=== PATIENT | male | born 1975 | race African-American/Black ===

== ENCOUNTER 2022-01-13 11:38 | Day surgery (SDC) | payer OTHER, SELFPAY ==
[2022-01-13] VITALS (13 sets, daily range): BP systolic 112–150; BP diastolic 56–96; PULSE 80–99; RESP 16–19; TEMP 36.6–37.5; O2SAT 95–100; BMI 30.7
--- NOTE | ~2022-01-13 | XR_ITS ---
EXAMINATION: XR FOREARM, LEFT CLINICAL INFORMATION: Foreign body COMPARISON: Same day radiographs TECHNIQUE: Additional AP view of the left forearm.. XR/XR forearm LT 2V FINDINGS: IMPRESSION: Redemonstration of the metallic staple which appears to traverse the mid shaft of the ulna with no fracture evident.
--- NOTE | ~2022-01-13 | FL_ITS ---
EXAMINATION: XR FLUOROSCOPY WITH IMAGES CLINICAL INFORMATION: Removal metallic staple mid left forearm. COMPARISON: Radiographs left forearm 01/13/2022 TECHNIQUE: Fluoroscopy performed by Sade. Fluoroscopy time: 9 seconds DAP: 5781.7 uGycm2 Images: 3 FINDINGS: Initial image demonstrates the U-shaped metallic staple residing adjacent to the midshaft ulnar. The other 2 images show no remaining metallic foreign body. No visible fracture or destructive process or periostitis. FL/FL guidance in OR IMPRESSION: Fluoroscopy for orthopedic procedure.
--- NOTE | ~2022-01-13 | XR_ITS ---
EXAMINATION: XR FOREARM, LEFT CLINICAL INFORMATION: Staple in forearm COMPARISON: None TECHNIQUE: AP and lateral views of the left forearm were obtained. FINDINGS: Bones have normal alignment at the elbow and wrist. No fracture or subluxation. A metallic staple projects over the proximal ulnar diaphysis on both radiographic views. Therefore, the staple is likely embedded within bone. The tips of the staple are within the anterolateral soft tissues whereas the stable head is in the posterior subcutaneous tissues. There are no other foreign bodies in the examined extremity. XR/XR forearm LT 2V IMPRESSION: The stable appears to penetrate through the ulnar diaphysis. However, no evidence of ulnar fracture.
[2022-01-13] MEDS: Diphth,Pertus(ACell),Tet Adult 0.5 ML SYRINGE IM (12:57)
[2022-01-13] MEDS: Morphine Sulfate 4 MG/ML CARTRIDGE IVPUSH ×2 (13:07→15:00)
[2022-01-13] MEDS: ondansetron HCL 4 MG/2 ML VIAL IVPUSH (13:07)
--- NOTE | 2022-01-13 13:22 | ED.WOUNDLAC ---
HPI - Wound/Laceration General Chief Complaint: Wound/Laceration Stated Complaint: staple shot into arm at work Time Seen by Provider: 01/13/22 12:23 Source: patient and family Mode of arrival: ambulatory Limitations: no limitations History of Present Illness HPI narrative: 46-year-old male healthy who is [id number] here with complaints of left forearm pain. Patient tells me that he was working and the staple gun accidentally went off into his left forearm. Since then he reports pain, swelling of the forearm with pain that radiates into the left hand. NO numbness, tingling. Tetanus status unknown. Related Data Allergies Allergy/AdvReac Type Severity Reaction Status Date / Time No Known Allergies Allergy Verified 01/13/22 11:45 Review of Systems Review of Systems: Yes all other systems are reviewed and are negative Constitutional: Constitutional: Reports no additional constitutional complaints, Denies body ache(s), Denies chills, Denies fever(s), Denies headache(s) and Denies weakness Eyes: Eyes: Reports no additional eye complaints and Denies change in vision ENT: Reports system reviewed and no additional complaints, except as documented, Denies dizziness, Denies headache(s), Denies nasal congestion, Denies nasal discharge and Denies neck pain Cardiovascular: Cardiovascular: Reports no additional cardiovascular complaints, Denies chest pain, Denies leg edema and Denies dyspnea Respiratory: Respiratory: Reports no additional respiratory complaints, Denies cough and Denies dyspnea Gastrointestinal: Gastrointestinal: Reports no additional gastrointestinal complaints, Denies abdominal pain, Denies diarrhea, Denies nausea and Denies vomiting Genitourinary: Genitourinary: Denies urinary incontinence Musculoskeletal: Musculoskeletal: Reports no additional musculoskeletal complaints, Denies back pain, Reports arthralgias, Denies joint swelling, Reports limited range of motion, Denies neck pain, Denies numbness and Denies tingling Integumentary/Breasts: Skin/Breast: Reports system reviewed and no additional complaints, except as docu, Reports swelling and Denies rash Neurologic: Reports system reviewed and no additional complaints, except as documented, Denies Abnormal speech present, Denies dizziness, Denies headache(s), Denies numbness, Denies tingling and Denies weakness [facility] Past Medical History Attestation statement: The following information was validated with the patient. Source: old records reviewed and nursing notes reviewed Social History Social History Advance Directives: No Advance Directives Information Provided: No Physical Exam Vital Signs: Vital Signs: Last Vital Signs Temp 99.5 F 01/13/22 16:05 Pulse 87 01/13/22 16:05 Resp 18 01/13/22 16:05 BP 140/93 H 01/13/22 16:05 Pulse Ox 97 01/13/22 16:05 BMI result Body Mass Index 30.7 Const: General: cooperative, healthy appearing, comfortable and no acute distress Orientation/consciousness: patient oriented x3 Limitations: no limitations HEENT: Head: Yes normal to inspection Ears: hearing grossly normal bilaterally General nose exam: Normal external nose present Face and sinus: Yes normal facial exam Mouth: Normal oral and palatal mucosa present Throat: Yes posterior oropharynx normal Eyes: General: appearance normal, both eyes and all related structures Pupils: Equal, round and reactive pupils present Neck: Neck: Yes normal visual inspection Chest: Chest palpation & inspection: normal inspection of the chest Resp: Effort & Inspection: normal respiratory effort Auscultation: clear to auscultation bilaterally Cardio: Rate: regular rate Rhythm: regular rhythm Peripheral pulses: Peripheral pulses 2+ throughout GI: Inspection: Yes normal to inspection Palpation (GI): Soft to palpation and nontender Auscultation: normal bowel sounds Back/Spine/Pelvis: Thoracic/Lumbar Spine: thoracic and lumbar spine normal to inspection Skin: General skin exam: no rashes or lesions noted Neuro: General: patient oriented x3, no focal motor deficits and normal sensation to monofilament Cranial nerves: Yes Equal, round and reactive pupils present Cognition (Neuro): normal cognition Speech: No Abnormal speech present Gait exam (Neuro): Normal gait present Motor exam (neuro): 5/5 motor strength present throughout Extrem: Other: On the lateral aspect of the left forearm there is a puncture site noted. I am able to visualize the stable. There is tenderness over the soft tissue of the left forearm with swelling and ecchymosis. The compartments are compressible. There are distal radial and ulnar pulses palpated. Patient is able to move his arm and left hand although painful he is able General: Yes normal to inspection Course Course Course Narrative: 46-year-old male [id number] here with complaints of left forearm pain after a staple gun fired into his arm just prior to arrival while working. Will check x-rays. Reevaluation(s) Reevaluation #1: It appears that the staple penetrates the ulna. There is no clear fracture. Will order antibiotics, tetanus, analgesia. Will discuss with Orthopedics Time: 13:00 Reevaluation #2: Orthopedics in OR. Pending call back Last PO was banana 7am, intermittent clear sips this morning Time: 14:45 Reevaluation #3: Seen by Dr Stuart. Plan for OR today for FB removal. Time: 15:30 MDM - Wound/Laceration Medical Records Attestation: I reviewed the patient's medical records. Lab Data Attestation: I reviewed the patient's lab results. Labs: Lab Results 01/13/22 Range/Units 15:29 COVID-19 ([facility]) Negative (Negative) COVID-19 Clin Com See Note Imaging Data left forearm x-ray: Attestation: I personally reviewed and interpreted this imaging study as follows: Radiologist's impression: [address] [address] XRay Report Signed Patient: Corby Alcantar MR#: [id number] : 1975 Acct:[id number] Age/Sex: 46 / M ADM Date: 01/13/22 Loc: .ED Attending Dr: Ordering Physician: Mercy Burgos NP Date of Service: 01/13/22 Procedure(s): XR forearm LT 2V Accession Number(s): [id number] cc: Mercy Burgos NP~ EXAMINATION: XR FOREARM, LEFT CLINICAL INFORMATION: Foreign body? COMPARISON: Same day radiographs? TECHNIQUE: Additional AP view of the left forearm.. XR/XR forearm LT 2V FINDINGS: IMPRESSION: Redemonstration of the metallic staple which appears to traverse the mid shaft of the ulna with no fracture evident.? ? Discharge Plan Discharge Clinical Impression: Foreign body forearm Patient Disposition: Xfer Other Transfer Details: short stay surgery Interventions: ED Discharge Assessment Last Done: 01/13/22 16:04 Discharge Date/Time: 01/13/22 16:05
--- NOTE | 2022-01-13 15:49 | PC.NURSE ---
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
[2022-01-13 15:52] LABS: COVID-19 Test Negative (Negative); IDNOW Serial# 9DB6401D
--- NOTE | 2022-01-13 16:11 | HO.ANESPROP2 ---
Documented by User: Darrel Rueda MD 01/13/22 16:12 HPI - Anesthesia Eval Consult details Narrative: 46 M for left forearm foreign body removal PMFSH Active Problems Active Problems: All Active Problems (Updated 01/13/22 @ 14:53 by Mercy Burgos NP) Foreign body forearm (Acute) Social History Social History Advance Directives: No Advance Directives Information Provided: No Meds Allergies Allergy/AdvReac Type Severity Reaction Status Date / Time No Known Allergies Allergy Verified 01/13/22 11:45 Exam Exam Date and Time: January 13, 2022 1611 Height,Weight and Vital Signs: Height 5 ft 11 in Weight 99.79 kg Last Vital Signs Temp 98.6 F 01/13/22 15:32 Pulse 80 01/13/22 15:32 Resp 18 01/13/22 15:33 BP 112/78 01/13/22 15:32 Pulse Ox 97 01/13/22 15:32 Pertinent Lab Results Pertinent Lab Results: Laboratory Tests 01/13/22 15:29 COVID-19 ([facility]) Negative COVID-19 Clin Com See Note Documented by User: John Curiel MD 01/13/22 17:00 PMFSH Family History Family history of problems with anesthesia: No Surgical History History of Problems with Anesthesia: No Social History Social History Advance Directives: No Advance Directives Information Provided: No Meds Allergies Allergy/AdvReac Type Severity Reaction Status Date / Time No Known Allergies Allergy Verified 01/13/22 11:45 Exam Airway Mallampati Class: IV TM Dist: >3cm Neck ROM: Full Loose/Missing/Broken Teeth: Yes Heart: s1 S2 Assessment and Plan Assessment Anesthesia Assessment: Anesthesia Plan Discussed Final Anesthetic Review Family History of Problems with Anesthesia: No History of Problems with Anesthesia: No NPO: Yes ASA Class: II and Emergency Final Preanesthetic Review: No Changes in Pt Med Stat, Meds/Allgs Chart Reviewed, Consent Obtained/Reviewed and Anes Risks/Benef Reviewed Patient Risk: Low Procedure Risk: Low Anesthetic Plan Anesthetic Plan: GA Disposition: Standard PACU
--- NOTE | 2022-01-13 17:12 | P.CONOP_ITS ---
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 Some how his left ulnar forearm got shot with a pretty good size staple gun and the staple entered the ulnar aspect of his forearm. I was called by the emergency department and asked to come down and evaluate him. The patient complains of pain and a wound on the ulnar aspect of his forearm. He denies any heart lung kidney problems asthma or diabetes. He had a tetanus shot in the ED. [facility] Social History Social History Advance Directives: No Advance Directives Information Provided: No Meds Allergies Allergy/AdvReac Type Severity Reaction Status Date / Time No Known Allergies Allergy Verified 01/13/22 11:45 Physical Exam Vital Signs: Vital Signs: Last Vital Signs Temp 99.5 F 01/13/22 16:05 Pulse 87 01/13/22 16:05 Resp 18 01/13/22 16:05 BP 140/93 H 01/13/22 16:05 Pulse Ox 97 01/13/22 16:05 BMI result Body Mass Index 30.7 Const: General: cooperative, healthy appearing and no acute distress Orientation/consciousness: oriented to person and oriented to place HEENT: Head: Yes normocephalic and Yes atraumatic Eyes: EOM: EOMs intact bilaterally Resp: Effort & Inspection: normal respiratory effort and able to speak in complete sentences Cardio: Jugular venous distension: no JVD Skin: General skin exam: turgor normal Rashes: no rashes Neuro: General: oriented to person and oriented to place Extrem: Other: Evaluation of leftUpper Extremity: Neuro: Median, ulnar, radial nerves motor and sensory grossly intact. Normal sensation to the tips of all digits including the small and ring fingers. Normal sensation to the ulnar dorsal aspect of the hand. Indeed sensation was normal to the entire hand. Good finger cross good abduction and adduction. Vascular: Cap refill brisk to all digits ROM: Can slowly bring fingers closed to a fist and back out to full or nearly full extension. This does cause some discomfort up with the injury site but he is able to make a fist and extend his fingers Can oppose thumb to fingertips Smooth wrist ROM He has a 2 cm open wound over the roughly mid shaft area of the ulna. I could see that shot any metal of the staple deep in the wound. Mild serosanguineous drainage. No significant bleeding. Radiographs: AP lateral of the left forearm shows a fairly large metallic staple that appears to have entered the shaft of the ulna. He appears to be fairly deeply imbedded in the bone. Psych: Appearance: grossly normal Affect: normal affect Attitude: cooperative Results Labs Labs: All other labs normal. Assessment and Plan (1) Laceration of left forearm without foreign body: Status: Acute (2) Open fracture of left ulna: Status: Acute Plan Assessment and plan: 1. Construction staple imbedded in left forearm and left ulnar shaft This is an open ulna fracture. I educated the patient about this condition I am recommending that we removed this operative and perform an I&D. The risks and benefits of operative treatment were discussed with the patient and the patient wishes to proceed with surgery. These risks include, but are not limited to risk of damage to blood vessels, nerves, tendons, infection, recurrence, incomplete relief of preoperative symptoms, persistent pain, possible need for further surgery and the risks associated with regional blocks and anesthesia. The plan is to take the patient to the operating room today for the following procedures: 1. Left ulna and forearm removal of construction stapleI 2. I and D left open ulna fracture All of the preoperative paperwork including the consent was filled out today. All the patient's questions were answered. Patient was taken from the ED to the preop area of the operating room. Procedures Date of Service Date of Service: 01/13/22
--- NOTE | 2022-01-13 17:30 | MHC.SHP ---
Pre-Procedural Eval Section A Date of Service: 01/13/22 The patient is an INPATIENT: No Changes since office visit: No Cold of Flu in the past 2 weeks, No New Medical Problems, No Changes in Medication and No Patient answered all questions The History & Physical has been completed within 30 days and I have reviewed it.: Yes Section B Chief Complaint: staple shot into arm at work Allergies: Allergies Allergy/AdvReac Type Severity Reaction Status Date / Time No Known Allergies Allergy Verified 01/13/22 11:45 Plan I have reviewed the history and physical and performed a pertinent physical examination on my patient. No changes have occurred unless specified.
--- NOTE | 2022-01-13 17:31 | P.OP_ITS ---
Operative Note Operative Note Date of Service: 01/13/22 Narrative: Operative Note Narrative: Preop diagnosis: 1. Left forearm/ulna foreign body 2. Left open ulna fracture, caused by foreign body Postop diagnosis: 1. Left forearm foreign body, deep Procedure: 1. Removal of construction site staple from left ulnar/volar forearm 2. I and D left forarm wounds Surgeon: Missy Stuart MD Anesthesia: General Findings: Intraoperative fluoroscopic images showed that the construction site staple was lying next to the ulnar shaft but did not appear to be actually within the ulna shaft. Construction site staple found in left forearm, with the tines passing just vo lar to the ulnar shaft. No purulence or gross debris Implants: Construction staple removed. Tourniquet time: 10 minutes EBL: 5.0 ml Specimen: None Drains: None Complications: None Disposition: Brought to the recovery room in stable condition Plan: Oral antibiotics times 10 days Follow-up next week for wound check, suture removal Indications: The patient is a 46 year year old man with a construction site staple shot from a staple gun and into the ulnar aspect of his left forearm. Radiographs suggested that it might be imbedded in the ulna shaft. . The risks and benefits of operative treatment, including but not limited to risk of damage to blood vessels, nerves, tendons, infection, recurrence, persistent pain or numbness, incomplete resolution of preoperative symptoms, or need for further surgery were discussed with the patient and they wished to proceed with surgery. Procedure: Once consent was obtained patient was brought back to the operating suite and placed in the operating table in a supine position. . Perioperative antibiotics and anesthesia was administered by the anesthesia team. A tourniquet was applied to the proximal aspect of the left upper extremity and the limb was prepped and draped in a standard surgical fashion. The limb was elevated exsanguinated with Esmarch bandage and the tourniquet inflated to 250 mm of mercury for a total tourniquet time of 10 minutes. Fluoroscopic images were taken intraoperatively and showed the tines of the staple appear to have passed just volar to the ulnar shaft rather than be penetrating into the shaft of the ulna. The staple was withdrawn from the wound using a pair of needle-nose pliers. This did not require significant force, suggesting again that the staple was not in the bone. I extended proximally and distally by approximately 1 cm each to facilitate I and D of this wound. S when I realized that the skin that had been beneath the staple actually was not lacerated but had been push deeply into the wound. I then made an incision through that strip of skin. I then dissected through the fascia using tenotomy scissors. The 2 puncture wounds were found in the volar forearm fascia at the edge of the ulna shaft. I passed my tenotomy scissors carefully into the wound and felt it passed along the volar aspect of the ulna. I then carefully opened my scissors to enlarge the wound to facilitate our I&D. This was done for both wounds caused by the stable. There approximately 1.5 cm apart. I then copiously irrigated the superficial aspect of the wound with normal saline. I then flushed out the penetrating wounds with normal saline using an Angiocath with care being taken to assure that the saline was also flowing out of the wound and not stain deep in the forearm. At this point the tourniquet was deflated and hemostasis obtained with a brief period of local pressure The skin edges were loosely reapproximated with 4-0 nylon suture to allow for drainage through the original wound. Sterile dressing was applied. The patient appears to have tolerated the procedure well and with no complications. All digits were well vascularized conclusion of the case.
== END 2022-01-13 17:29 ==
LOC: HO.ED 16:03 → HO.SSS 04-07 11:55
PROVIDERS: Nurse Practitioner Family; Emergency Provider Emergency Medicine; Visit Provider Orthopaedic Surgery
PROC: (CPT 25248; principal; 2022-01-13 15:10)
DX: S51.842A Puncture wound with foreign body of left forearm, initial encounter (principal); X58.XXXA Exposure to other specified factors, initial encounter; Y93.H3 Activity, building and construction; Y92.69 Other specified industrial and construction area as the place of occurrence of the external cause; Y99.0 Civilian activity done for income or pay; Z20.822 Contact with and (suspected) exposure to COVID-19
CPT/HCPCS: 25248; 73090; 87635; 90471; 90715; 96365; 96375; 96376; 99283; 99285; J0690; J1100; J2250; J2270; J2405; J2765; J3010

== ENCOUNTER → 2022-01-18 10:18 | Outpatient (BNVA) | payer OTHER, SELFPAY | PROVIDERS: Visit Provider Orthopaedic Surgery | DX: S50.852D Superficial foreign body of left forearm, subsequent encounter (principal) | CPT/HCPCS: 99212 ==

== ENCOUNTER → 2022-01-25 15:07 | Outpatient (BNVA) | payer OTHER, SELFPAY | PROVIDERS: Visit Provider Orthopaedic Surgery | DX: S50.852D Superficial foreign body of left forearm, subsequent encounter (principal) | CPT/HCPCS: 99212 ==

== ENCOUNTER → 2022-04-20 12:18 | Outpatient (BNVA) | payer OTHER, SELFPAY | PROVIDERS: Visit Provider Orthopaedic Surgery | DX: S50.852D Superficial foreign body of left forearm, subsequent encounter (principal) | CPT/HCPCS: 99212 ==

== ENCOUNTER 2022-04-21 09:30 | Outpatient (RCR) | payer OTHER, SELFPAY ==
--- NOTE | 2022-04-06 12:02 | MHC.OT.OEV ---
[address] [phone] F: [phone] Occupational Therapy Evaluation Diagnosis: Superficial foreign body of left forearm Date of Onset: 01/13/22 Date of Surgery: 01/13/22 Attending Provider: Missy Stuart Prescribed Treatment: OT eval and treat. Help return to full duty MD Follow Up Appointment: History of Current Condition: Pt was accidentally injured with a staple gun shot to in left forearm with a 2 1/2 staple Pt seen in the ED, Dr Stuart was called in for consultation and pt underwent staple removal and I+D of forearm wound. Pt reports he returned to work on light duty approximately 2 wks after. He reports minimally difficulty avoiding use of his left arm as able . He is now with complaint of increased discomfort and numbness at his wrist after work. He is referred to OT to progress work tolerance for returning to full duty. Significant Medical History: None Precautions/Contraindications: Patient Goals: To see if I can go back to full duty without getting injured Hand Dominance: Right Observations: QuickDASH Score: Prior Level of Function and Occupation Self Care, Employment, Leisure: Indep in all areas Machine op , laminate machine , laminate press... pushing , pulling, lifting 4x8 - 5x12's Play football league , and fishing Living Situation, Family and/or Social Support: , four children home Shares house and yard work Current Level of Function and Occupation Self Care, Employment, Leisure: Indep difficulty with discomfort , low pain and wrist tingling at end of day at home with daily activities. Waking with wrist tingling, discomfort with wrist motion Working light duty, minimal use, sweeping.. training, taking out trash, making boxes Sleep: WNL Driving: Discomfort and numbness with left hand on steering wheel Vision: Balance: Pain Assessment Pain Score: 4 Pain Scale Used: Numeric (0 - 10) Pain Location and Description: 0-4 circumferential wrist. ache Aggravating Factors: Wrist extension and ulnar dev. Gripping Alleviating Factors: Skin and Soft Tissue Assessment Skin and Soft Tissue: Comments: Nerve assessment Ulnar Nerve: WNL Median Nerve: WNL Radial Nerve: WNL Comments: MMT WNL Sensory Assessment Temperature: Light Touch: WNL Proprioception: Vibration: Comments: Edema Assessment Upper Extremity: WNL Lower Extremity: Comments: Dexterity Assessment Dexterity: WNL Comments: Special Tests Comments: Phalens Test R neg L neg. sx at wrist AROM(PROM) Strength Cervical Cervical Flexion: Cervical Extension: Cervical Lateral Flexion: Cervical Rotation: Comments: Shoulder Flexion: Extension: Abduction: Internal Rotation: External Rotation: Comments: Flexion: Extension: Abduction: Internal Rotation: External Rotation: Comments: Elbow Flexion: Extension: Pronation: Supination: Comments: Flexion: Extension: Pronation: Supination: Comments: Wrist Flexion: R 80 deg L 65 deg Extension: R 70 deg L 60 deg Ulnar Deviation: Radial Deviation: Comments: Left dorsal wrist pain with end range ext Flexion: Extension: Ulnar Deviation: Radial Deviation: Comments: Thumb Thumb CMC Flexion: Thumb MCP Flexion: Thumb IP Flexion: Radial Abduction: Palmar Abduction: [place] (Kapandji 0-10): Comments: WNL Digits Index MCP: PIP: DIP: Long MCP: PIP: DIP: Ring MCP: PIP: DIP: Small MCP: PIP: DIP: Comments: WNL Gross Grasp: R 130 lb L 55 lb Lateral Pinch: Two-Point Pinch: Three-Jaw Mike: Comments: Left volar wrist pain with director systems testing Patient Education Primary Language: German 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 Patient demonstrates Patient verbalizes Barriers to Learning: None Readiness for Learning: Accepting Who was educated? Patient Comments: Plan of Care Assessment: Pt was accidentally injured with a staple gun shot to in left forearm with a 2 1/2 staple Pt seen in the ED, Dr Stuart was called in for consultation and pt underwent staple removal and I+D of forearm wound. Pt reports he returned to work on light duty approximately 2 wks after. He reports minimally difficulty avoiding use of his left arm as able . He is now with complaint of increased discomfort and numbness at his wrist after work. He is referred to OT to progress work tolerance for returning to full duty. Today he presents with impairments in wrist ROM, director systems strength and activity tolerance Pt will benefit from OT for improving activity tolerance for full duty tasks STG Duration: 3 wks Short Term Goals: Demo indep with [employer] left wrist ext to 65 deg Wrist flexion to 75 deg Left director systems to >70 lb Tolerate simulated work tasks with pulling, pushing , lifting Quick DASH score < 30 pts LTG Duration: 3 wks [employer] Goals: Same as above Frequency and Duration: The patient will be seen 2x wk x 3 wks Treatment Plan: Therapeutic Exercise Therapeutic Activity Home Exercise Program Patient Education Other (see comments) Simulated work tasks Electronically Signed By: Jessica Mathis OT CHT CLT Reviewed/agree with student documentation: Therapist: Please sign and return to therapist, Thank you for your referral.
--- NOTE | 2022-04-06 16:30 | MHC.OT.OEV ---
[address] [phone] F: [phone] Occupational Therapy Evaluation Diagnosis: Superficial foreign body of left forearm Date of Onset: 01/13/22 Date of Surgery: 01/13/22 Attending Provider: Missy Stuart Prescribed Treatment: OT eval and treat. Help return to full duty MD Follow Up Appointment: History of Current Condition: Pt was accidentally injured with a staple gun shot to in left forearm with a 2 1/2 staple Pt seen in the ED, Dr Stuart was called in for consultation and pt underwent staple removal and I+D of forearm wound. Pt reports he returned to work on light duty approximately 2 wks after. He reports minimally difficulty avoiding use of his left arm as able . He is now with complaint of increased discomfort and numbness at his wrist after work. He is referred to OT to progress work tolerance for returning to full duty. Significant Medical History: None Precautions/Contraindications: Patient Goals: To see if I can go back to full duty without getting injured Hand Dominance: Right Observations: QuickDASH Score: Prior Level of Function and Occupation Self Care, Employment, Leisure: Indep in all areas Machine op , laminate machine , laminate press... pushing , pulling, lifting 4x8 - 5x12's Play football league , and fishing Living Situation, Family and/or Social Support: , four children home Shares house and yard work Current Level of Function and Occupation Self Care, Employment, Leisure: Indep difficulty with discomfort , low pain and wrist tingling at end of day at home with daily activities. Waking with wrist tingling, discomfort with wrist motion Working light duty, minimal use, sweeping.. training, taking out trash, making boxes Sleep: WNL Driving: Discomfort and numbness with left hand on steering wheel Vision: Balance: Pain Assessment Pain Score: 4 Pain Scale Used: Numeric (0 - 10) Pain Location and Description: 0-4 circumferential wrist. ache Aggravating Factors: Wrist extension and ulnar dev. Gripping Alleviating Factors: Skin and Soft Tissue Assessment Skin and Soft Tissue: Comments: Nerve assessment Ulnar Nerve: WNL Median Nerve: WNL Radial Nerve: WNL Comments: MMT WNL Sensory Assessment Temperature: Light Touch: WNL Proprioception: Vibration: Comments: Edema Assessment Upper Extremity: WNL Lower Extremity: Comments: Dexterity Assessment Dexterity: WNL Comments: Special Tests Comments: Phalens Test R neg L neg. sx at wrist AROM(PROM) Strength Cervical Cervical Flexion: Cervical Extension: Cervical Lateral Flexion: Cervical Rotation: Comments: Shoulder Flexion: Extension: Abduction: Internal Rotation: External Rotation: Comments: Flexion: Extension: Abduction: Internal Rotation: External Rotation: Comments: Elbow Flexion: Extension: Pronation: Supination: Comments: Flexion: Extension: Pronation: Supination: Comments: Wrist Flexion: R 80 deg L 65 deg Extension: R 70 deg L 60 deg Ulnar Deviation: Radial Deviation: Comments: Left dorsal wrist pain with end range ext Flexion: Extension: Ulnar Deviation: Radial Deviation: Comments: Thumb Thumb CMC Flexion: Thumb MCP Flexion: Thumb IP Flexion: Radial Abduction: Palmar Abduction: [place] (Kapandji 0-10): Comments: WNL Digits Index MCP: PIP: DIP: Long MCP: PIP: DIP: Ring MCP: PIP: DIP: Small MCP: PIP: DIP: Comments: WNL Gross Grasp: R 130 lb L 55 lb Lateral Pinch: Two-Point Pinch: Three-Jaw Mike: Comments: Left volar wrist pain with loop 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 Patient demonstrates Patient verbalizes Barriers to Learning: None Readiness for Learning: Accepting Who was educated? Patient Comments: Plan of Care Assessment: Pt was accidentally injured with a staple gun shot to in left forearm with a 2 1/2 staple Pt seen in the ED, Dr Stuart was called in for consultation and pt underwent staple removal and I+D of forearm wound. Pt reports he returned to work on light duty approximately 2 wks after. He reports minimally difficulty avoiding use of his left arm as able . He is now with complaint of increased discomfort and numbness at his wrist after work. He is referred to OT to progress work tolerance for returning to full duty. Today he presents with impairments in wrist ROM, loop tacker strength and activity tolerance Pt will benefit from OT for improving activity tolerance for full duty tasks STG Duration: 3 wks Short Term Goals: Demo indep with [employer] left wrist ext to 65 deg Wrist flexion to 75 deg Left loop tacker to >70 lb Tolerate simulated work tasks with pulling, pushing , lifting Quick DASH score < 30 pts LTG Duration: 3 wks [employer] Goals: Same as above Frequency and Duration: The patient will be seen 2x wk x 3 wks Treatment Plan: Therapeutic Exercise Therapeutic Activity Home Exercise Program Patient Education Other (see comments) Simulated work tasks Electronically Signed By: Jessica Mathis OT CHT CLT Reviewed/agree with student documentation: Therapist: Please sign and return to therapist, Thank you for your referral.
== END 2022-06-13 09:57 | disposition home or self-care (01) ==
LOC: HO.OT 09:30
PROVIDERS: Visit Provider Orthopaedic Surgery
DX: S50.852A Superficial foreign body of left forearm, initial encounter (principal)
CPT/HCPCS: 97035; 97110; 97140; 97165